=== PATIENT | female | born 1995 | race African-American/Black ===

== ENCOUNTER 2016-10-20 22:12 | Emergency (ER) | payer SELFPAY ==
[2016-10-21 01:13] LABS: BILIRUBIN NEGATIVE (NEGATIVE); BLOOD 3+ Ery/uL (NEGATIVE); CLARITY CLEAR (CLEAR); COLOR YELLOW (YELLOW); GLUCOSE (U) NORMAL (NORMAL); KETONE (U) NEGATIVE (NEGATIVE); LEUKOCYTES NEGATIVE Leu/uL (NEGATIVE); NITRITE NEGATIVE (NEGATIVE); PROTEIN NEGATIVE (NEGATIVE); SPECIFIC GRAVITY 1.025 (1.001-1.030); UROBILINOGEN 0.2 mg/dL (0.2-1.0)
[2016-10-21 01:22] LABS: BACTERIA TRACE; SQUAMOUS EPITHELIAL CELLS RARE; URINARY RBC 20-50; URINARY WBC RARE
== END 2016-10-21 01:41 | disposition home or self-care (01) ==
LOC: FER 22:12
PROVIDERS: Emergency Medicine Emergency Medical Services
DX: R10.2 Pelvic and perineal pain (principal)
CPT/HCPCS: 81001; 87210; J1885

== ENCOUNTER 2016-10-23 07:16 | Emergency (ER) | payer SELFPAY | END 2016-10-23 10:27 | disposition home or self-care (01) | LOC: FER 07:16 | DX: O20.9 Hemorrhage in early pregnancy, unspecified (principal); O26.891 Other specified pregnancy related conditions, first trimester; N83.202 Unspecified ovarian cyst, left side; Z3A.00 Weeks of gestation of pregnancy not specified | CPT/HCPCS: 76830 ==

== ENCOUNTER 2021-08-03 23:51 | Emergency (ER) | payer OTHER ==
[2021-08-04 01:06] LABS: BASOPHIL 0.8 % (0-2); EOSINOPHIL 0.6 % (0-5); HCT 37.6 % (37.0-47.0); HGB 12.2 g/dl (12.5-16.0); LYMPHOCYTE 49.5 % (15-48); MCH 28.1 pg (25.0-31.0); MCHC 32.4 g/dL (32.0-36.0); MCV 86.6 fL (78.0-100.0); MONOCYTE 10.2 % (0-12); MPV 10.1 fL (6.0-9.5); NEUTROPHIL 38.7 % (41-80); NRBC 0; PLT 349 K/uL (150-400); RBC 4.34 M/uL (4.20-5.40); RDW 14.1 % (11.5-14.0); WBC 5.2 K/uL (4.0-10.5)
[2021-08-04 02:09] LABS: ALBUMIN 3.8 g/dL (3.4-5.0); BILIRUBIN - TOTAL 0.5 mg/dL (0.2-1.0); BUN/CREAT RATIO (CALC) 25.4 RATIO; CREATININE 0.63 mg/dL (0.51-0.95); GLOBULIN (CALCULATION) 4.1 g/dL; POTASSIUM 4.4 mmol/L (3.5-5.1); TOTAL PROTEIN 7.9 g/dL (6.4-8.2)
[2021-08-04] MEDS ORDERED: CYCLOBENZAPRINE10 MG PO (04:59)
[2021-08-04] MEDS ORDERED: NORCO 5-325 TA1 EACH PO (04:59)
== END 2021-08-04 05:41 | disposition home or self-care (01) ==
LOC: FER 23:51
PROVIDERS: Emergency Medicine Emergency Medical Services
DX: S16.1XXA Strain of muscle, fascia and tendon at neck level, initial encounter (principal); S50.12XA Contusion of left forearm, initial encounter; V43.52XA Car driver injured in collision with other type car in traffic accident, initial encounter
CPT/HCPCS: 36415; 70450; 70486; 71045; 72125; 80053; 83690; 85025; J1100; J1885; J2800; J7050; Q9967